=== PATIENT | male | born 1965 | race Caucasian/White ===

== ENCOUNTER 2024-12-27 18:51 | Emergency (ER) | payer MEDICAID ==
[~2024-12-27] VITALS: Ht 177.8 cm; Wt 80.0 kg
[~2024-12-27 18:51] MED LIST: FOLI1TAB27 PO; PANT-47 PO; thiamine tablet PO
[2024-12-27] MEDS ORDERED: PERM59LI8 TOP (19:31)
--- NOTE | 2024-12-27 19:31 | Physician Documentation ---
History of Present Illness ~ Chief Complaint: Bite-insect Stated Complaint: LICE Time Seen by MD: 19:09 HPI This is a 59-year-old male who presents with concern for lice after staff at the [facility] where he is living noticed lice in his hair during a free her cat event. Patient reports no other acute symptoms or concerns. Tetanus within 5 years?: No Medication Reconciliation Allergies: Coded Allergies: No Known Allergies (Unverified , 11/11/24) Scheduled Folic Acid* (Folic Acid*), 1 MG PO DAILY Pantoprazole Sodium (PROTONIX tablet), 40 MG PO DAILY [thiamine tablet], 100 MG PO DAILY Discontinued Medications Permethrin (Lice Treatment), 1 APPLIC TOP ONCE Past Medical History Past Medical History: No Pertinent History Past Surgical History: no surgical history Patient History: FH: brain cancer FH: brain tumor Alcohol Use: Heavy Drug Use: none Review of Systems ROS As stated above in the HPI, otherwise all systems are reviewed and negative. Physical Exam Vital Signs: Temperature: 98.1, Heart Rate: 91, Respiratory Rate: 16, BP: 151/78, Pulse Oximetry: 99, Weight: 80.000 Oxygen Flow Rate: 0 Physical Exam VITALS: Reviewed and as above. GENERAL: Alert, nontoxic appearing, no apparent distress. HEENT: Lice and eggs in hair RESPIRATORY: No increased work of breathing, no respiratory distress, speaking in full clear sentences Progress Results/Orders Results/Orders Completed Orders - EAMON KEARNS [employer]INE[employer] Ivermectin 117 Gm Bottle (Ivermectin 117 (12/27/24 19:35) Medications Received in ER Medications (Trade) Dose Ordered Sig/Hardik Route PRN Reason Start Time Stop Time Status Last Admin Dose Admin (Ivermectin 117gm lotion) 117 applic ONCE ONCE TP 12/27/24 19:35 12/27/24 19:43 DC 12/27/24 20:03 117 APPLIC Vital Signs 12/27/24 12/27/24 19:24 20:07 Temp 98.1 98.6 Pulse 91 90 Resp 16 18 B/P (MAP) 151/78 150/76 Pulse Ox 99 99 O2 Flow Rate 0 Medical Decision Making Additional information obtaine: N/A Findings This 59-year-old male presented from the [facility] with concern for lice in his hair after lice were noticed during a free hair cut event, physical exam demonstrated lice and eggs patient's hair which will require treatment. Patient had no other acute symptoms or concerns in his appropriate for discharge and out patient follow up. Patient provided home care instructions, follow up instructions, and return to care precautions. Differential Dx:Considerations: Include: Allergic reaction, Cellulitis, Insect envenomation, Other (Dandruff) Departure Time of Disposition: 19:29 Disposition: 01 HOME / SELF CARE / HOMELESS Impression: Primary Impression: Lice infested hair Condition: Improved Discharge Instructions: Lice, Adult Additional Instructions: You have received treatment for lice infestation. 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 Please follow up with your primary care provider or the [facility] in the next few days. Please return to the emergency department for any new or worsening concerning symptoms. Referrals: NO PRIMARY CARE PROVIDER (PCP) Education Educated: Patient Educated regarding: diagnosis, treatment, prognosis, need for follow up Signature Scribe Signature: No scribe Attestation: The note accurately reflects work and decisions made by me.RUBY Carson 12/27/24 23:04 EAMON KEARNS Dec 27, 2024 19:31
[2024-12-27] MEDS: IVERMECTIN 117 GM LOTION TP ONE (20:03)
[2024-12-27 20:07] VITALS: BP 150/76; PULSE 90; RESP 18; TEMP 98.6; O2SAT 99
== END 2024-12-27 20:08 | disposition home or self-care (01) ==
LOC: ER 18:51
DX: B85.0 Pediculosis due to Pediculus humanus capitis (principal); F10.90 Alcohol use, unspecified, uncomplicated; Y90.9 Presence of alcohol in blood, level not specified
CPT/HCPCS: 99283